=== PATIENT | male | born 2000 | race Hispanic/Latino ===

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

== ENCOUNTER 2020-09-18 22:10 | Emergency (ER) | payer BC, MEDICAID ==
[2020-09-18] MEDS ORDERED: ACETAMINOPHEN 325 MG TAB ONE (22:32)
[2020-09-18] MEDS ORDERED: IBUPROFEN 400 MG TABLET ONE (22:32)
== END 2020-09-18 23:54 | disposition home or self-care (01) ==
LOC: EDH 22:10
DX: S62.324A Displaced fracture of shaft of fourth metacarpal bone, right hand, initial encounter for closed fracture (principal); K21.9 Gastro-esophageal reflux disease without esophagitis; X58.XXXA Exposure to other specified factors, initial encounter; Y93.89 Activity, other specified; Y92.098 Other place in other non-institutional residence as the place of occurrence of the external cause; Y99.8 Other external cause status
CPT/HCPCS: 26770; 73130

== ENCOUNTER 2020-10-11 13:53 | Emergency (ER) | payer BC ==
[2020-10-11] MEDS ORDERED: ONDANSETRON HCL 4 MG/2 ML VIAL ONE (14:23)
[2020-10-11] MEDS ORDERED: SODIUM CHLORIDE 0.9% 1000ML 1,000 ML IV ONE (14:24)
[2020-10-11 15:05] LABS: BASOPHILS % (AUTO) 0.5 % (0.0-5.0); CREATININE 1.3 mg/dL (0.5-1.5); EOSINOPHILS % (AUTO) 0.5 % (0.0-8.0); HEMATOCRIT 48.1 % (42-54); LYMPHOCYTES % (AUTO) 21.3 % (21.0-51.0); MEAN CORPUSCULAR HEMOGLOBIN 29.4 pg (27.0-33.0); MEAN CORPUSCULAR HGB CONC 35.6 g/dL (32.0-36.0); MEAN CORPUSCULAR VOLUME 82.8 fL (80-100); MONOCYTES % (AUTO) 6.6 % (3.0-13.0); NEUTROPHILS % (AUTO) 70.3 % (40.0-77.0); PLATELET COUNT (AUTO) 355 K/uL (130-400); POTASSIUM 3.5 mmol/L (3.5-5.1); RED BLOOD CELL COUNT(AUTO) 5.81 MIL/uL (4.50-6.20); RED CELL DISTRIBUTION WIDTH 11.9 % (11.0-15.5); WHITE BLOOD COUNT (AUTO) 24.4 K/uL (4.8-10.8)
[2020-10-11 15:10] LABS: ALBUMIN 5.3 g/dL (3.5-5.0); BILIRUBIN,TOTAL 0.9 mg/dL (0.2-1.0); TOTAL PROTEIN, SERUM 8.7 g/dL (6.0-8.3)
== END 2020-10-11 15:43 | disposition home or self-care (01) ==
LOC: EDH 13:53
DX: R11.2 Nausea with vomiting, unspecified (principal); F10.129 Alcohol abuse with intoxication, unspecified; K21.9 Gastro-esophageal reflux disease without esophagitis
CPT/HCPCS: 36415; 80053; 85025; 96365; 99284; J2405; J7030

== ENCOUNTER 2021-01-21 18:41 | Emergency (ER) | payer BC | END 2021-01-21 18:42 | disposition left against medical advice (07) | LOC: EDH 18:41 | DX: R11.2 Nausea with vomiting, unspecified (principal); R19.7 Diarrhea, unspecified; Z53.21 Procedure and treatment not carried out due to patient leaving prior to being seen by health care provider ==

== ENCOUNTER 2021-06-06 09:25 | Emergency (ER) | payer BC ==
[~2021-06-06] VITALS: Ht 172.7 cm; Wt 61.2 kg
[2021-06-06 09:26] VITALS: BP 135/66
[2021-06-06] MEDS ORDERED: KETO30CR21 TP (10:37)
== END 2021-06-06 10:52 | disposition home or self-care (01) ==
LOC: EDH 09:25
DX: B35.4 Tinea corporis (principal)
CPT/HCPCS: 99281

== ENCOUNTER 2022-11-01 06:12 | Emergency (ER) | payer BC ==
[~2022-11-01] VITALS: Ht 167.6 cm; Wt 70.3 kg
[~2022-11-01 06:12] MED LIST: KETO30CR21 TP
[2022-11-01 07:15] LABS: AMPHET/METH SCREEN,URINE NEGATIVE (NEGATIVE); BARBITURATE SCREEN, URINE NEGATIVE (NEGATIVE); BENZODIAZEPINES SCREEN,URINE NEGATIVE (NEGATIVE); CANNABINOID SCREEN,URINE POSITIVE (NEGATIVE); COCAINE SCREEN,URINE POSITIVE (NEGATIVE); OPIATE SCREEN,URINE NEGATIVE (NEGATIVE); PHENCYCLIDINE SCREEN,URINE NEGATIVE (NEGATIVE)
[2022-11-01] MEDS ORDERED: ALPRAZOLAM 1 MG TAB PO ONE (07:30)
[2022-11-01 07:46] VITALS: BP 146/82
== END 2022-11-01 09:04 | disposition home or self-care (01) ==
LOC: EDH 06:12
DX: F10.129 Alcohol abuse with intoxication, unspecified (principal); F14.10 Cocaine abuse, uncomplicated; F41.9 Anxiety disorder, unspecified
CPT/HCPCS: 80305; 93005

== ENCOUNTER 2025-03-16 12:50 | Emergency (ER) | payer BC, OTHER ==
[~2025-03-16] VITALS: Ht 165.1 cm; Wt 68.0 kg
[2025-03-16] MEDS: ondanSETRON 4MG INJ IVP ONE (13:13)
[2025-03-16] MEDS: 0.9%NACL 1000ML 1,000 ML IV ONE (13:13)
[2025-03-16 13:16] LABS: BASOPHILS # (AUTO) 0.08 K/uL (0.00-0.20); BASOPHILS % (AUTO) 0.5 % (0.0-5.0); EOSINOPHILS # (AUTO) 0.05 K/uL (0.00-0.70); EOSINOPHILS % (AUTO) 0.3 % (0.0-8.0); HEMATOCRIT 48.7 % (42-54); IMMATURE GRANULOCYTE ABSOLUTE 0.12 K/uL (0-1); LYMPHOCYTES # (AUTO) 2.7 K/uL (1.0-4.8); LYMPHOCYTES % (AUTO) 15.9 % (21.0-51.0); MEAN CORPUSCULAR HEMOGLOBIN 29.6 pg (27.0-33.0); MEAN CORPUSCULAR HGB CONC 35.7 g/dL (32.0-36.0); MEAN CORPUSCULAR VOLUME 82.8 fL (79-99); MONOCYTES # (AUTO) 0.7 K/uL (0.1-1.0); MONOCYTES % (AUTO) 4.4 % (3.0-13.0); NEUTROPHILS # (AUTO) 13.3 K/uL (1.8-7.7); NEUTROPHILS % (AUTO) 78.2 % (40.0-77.0); PLATELET COUNT (AUTO) 273 K/uL (130-400); RED BLOOD CELL COUNT(AUTO) 5.88 MIL/uL (4.50-6.20); RED CELL DISTRIBUTION WIDTH 11.8 % (11.0-15.5)
[2025-03-16 13:33] LABS: BILIRUBIN,DIRECT 0.3 mg/dL (0.0-0.3); CREATININE 1.3 mg/dL (0.5-1.3); POTASSIUM 4.6 mmol/L (3.5-5.1); TOTAL PROTEIN, SERUM 8.3 g/dL (6.0-8.3)
[2025-03-16 14:21] LABS: APPEARANCE,URINE CLEAR (CLEAR); BILIRUBIN,URINE NEGATIVE (NEGATIVE); COLOR,URINE YELLOW (YELLOW); GLUCOSE, URINE (UA) NEGATIVE (NEGATIVE); KETONES,URINE 100 mg/dL (NEGATIVE); LEUKOCYTE ESTERASE ,URINE NEGATIVE Leu/uL (NEGATIVE); MUCUS,URINE RARE LPF (None Seen); NITRATE,URINE NEGATIVE (NEGATIVE); OCCULT BLOOD,URINE NEGATIVE (NEGATIVE); PH,URINE 5.5 (5.0-8.0); PROTEIN,URINE 30 mg/dL (NEGATIVE); RBC,URINE 0-1 /HPF (0-1); UROBILINOGEN,URINE 0.2 mg/dL (0.2-1.0)
[2025-03-16 14:27] LABS: AMPHET/METH SCREEN,URINE NEGATIVE (NEGATIVE); BARBITURATE SCREEN, URINE NEGATIVE (NEGATIVE); BENZODIAZEPINES SCREEN,URINE NEGATIVE (NEGATIVE); CANNABINOID SCREEN,URINE POSITIVE (NEGATIVE); COCAINE SCREEN,URINE POSITIVE (NEGATIVE); OPIATE SCREEN,URINE NEGATIVE (NEGATIVE); PHENCYCLIDINE SCREEN,URINE NEGATIVE (NEGATIVE)
[2025-03-16 14:48] VITALS: BP 95/49; PULSE 71; RESP 16; TEMP 98.9; O2SAT 100
--- NOTE | 2025-03-16 15:28 | ERN ---
General Chief Complaint: Nausea,Vomiting,Diarrhea Stated Complaint: ALCOHOL POISONING Time Seen by MD: 12:55 Time Seen by Midlevel: 12:55 Source: patient History of Present Illness Initial Comments 24-year-old male who presents to the emergency department due to vomiting onset this morning. Patient states he thinks he has alcohol poisoning. Reports he had multiple beers yesterday unsure anywhere between 12-20, along with cocaine use. Patient denies any abdominal pain, chest pain, difficulty breathing or further associated symptoms. Denies significant past medical history. Allergies: Coded Allergies: No Known Allergies (Unverified Allergy, Unknown, 06/06/21) Home Meds Active Scripts Ketoconazole/Hydrocortisone (Hydrocort 2.5%-Ketoconazole 2%) 30 Gm Cream..g., 30 GM TP TID for 15 Days, #15 TUBE Prov:ALEJANDRA RUBY MD 06/06/21 Past Medical History Past Medical History: No Pertinent History Past Surgical History: Other Surgical History Other: RT HAND SX Family History Family History: Negative Social History Social History: Smokers, Drugs, ETOH, Lives with family ROS Dictation Constitutional: Negative for fever,chills, and weight loss Eyes: Negative for injury, pain,redness, and discharge ENT: Negative for injury,pain or swelling Cardiovascular: Negative for chest pain, palpitations, and edema Respiratory: Negative for shortness of breath, cough, and wheezing, Abdomen/GI: Positive for vomiting Negative for abdominal pain, diarrhea, and constipation Back: Negative for injury and pain : Negative for painful urination, bleeding or discharge MS/Extremity: Negative for injury and deformity Skin: Negative for rash, and discoloration Neuro: Negative for headache, weakness, numbness, tingling, and seizure Psych: Negative for suicide ideation, homicidal ideation, and hallucinations Physical Exam Physical Exam Dictation General: awake, alert, no acute distress Head/Face: Normocephalic, atraumatic Eyes: PERRL, EOMI, normal conjuctiva ENT: oral cavity clear, TMs clear, oral mucosa moist Neck: Supple, normal range of motion Cardiovascular: RRR, normal S1/S2 Respiratory: CTAB, no respiratory distress, no rales or wheezes Abdomen: Soft, non-tender, non-distended, normal bowel sounds, no guarding or rebound. Skin: Warm, dry, normal turgor, no rash MS/Extremity: Pulses equal, no cyanosis, neurovascular intact, FROM Neuro: COAx4, GCS 15, strength 5/5, CN 2-12 intact, normal cerebellar exam, normal gait, Psych: Normal behavior, mood, and affect normal Results Laboratory and Microbiology Lab and Micro Result Laboratory Tests Test 03/16/25 13:06 03/16/25 13:46 White Blood Count 17.0 K/uL (4.8-10.8) H Red Blood Count 5.88 MIL/uL (4.50-6.20) Hemoglobin 17.4 g/dL (14.0-18.0) Hematocrit 48.7 % (42-54) Mean Corpuscular Volume 82.8 fL (79-99) Mean Corpuscular Hemoglobin 29.6 pg (27.0-33.0) Mean Corpuscular Hemoglobin Concent 35.7 g/dL (32.0-36.0) Red Cell Distribution Width 11.8 % (11.0-15.5) Platelet Count 273 K/uL (130-400) Mean Platelet Volume 9.5 fL (7.5-10.5) Immature Granulocyte % (Auto) 0.7 % (0-1) Neutrophils (%) (Auto) 78.2 % (40.0-77.0) H Lymphocytes (%) (Auto) 15.9 % (21.0-51.0) L Monocytes (%) (Auto) 4.4 % (3.0-13.0) Eosinophils (%) (Auto) 0.3 % (0.0-8.0) Basophils (%) (Auto) 0.5 % (0.0-5.0) Neutrophils # (Auto) 13.3 K/uL (1.8-7.7) H Lymphocytes # (Auto) 2.7 K/uL (1.0-4.8) Monocytes # (Auto) 0.7 K/uL (0.1-1.0) Eosinophils # (Auto) 0.05 K/uL (0.00-0.70) Basophils # (Auto) 0.08 K/uL (0.00-0.20) Absolute Immature Granulocyte (auto 0.12 K/uL (0-1) Nucleated Red Blood Cells 0.0 % (0.0-0.19) Sodium Level 144 mmol/L (136-145) Potassium Level 4.6 mmol/L (3.5-5.1) Chloride Level 105 mmol/L (101-111) Carbon Dioxide Level 22 mmol/L (21-32) Blood Urea Nitrogen 19 mg/dL (7-18) H Creatinine 1.3 mg/dL (0.5-1.3) Glomerular Filtration Rate Calc 78 mL/min (>90) Random Glucose 69 mg/dL (70-105) L Total Calcium 9.7 mg/dL (8.5-10.1) Total Bilirubin 1.0 mg/dL (0.2-1.0) Direct Bilirubin 0.3 mg/dL (0.0-0.3) Aspartate Amino Transf (AST/SGOT) 38 U/L (10-37) H Alanine Aminotransferase (ALT/SGPT) 33 U/L (12-78) Alkaline Phosphatase 82 U/L (50-136) Total Protein 8.3 g/dL (6.0-8.3) Albumin 5.0 g/dL (3.5-5.0) Lipase 22 U/L (16-77) Serum Alcohol 27 mg/dL (0-10) H Urine Color YELLOW (YELLOW) Urine Appearance CLEAR (CLEAR) Urine pH 5.5 (5.0-8.0) Urine Specific [place] 1.028 (1.001-1.031) Urine Protein 30 mg/dL (NEGATIVE) H Urine Glucose (UA) NEGATIVE mg/dL (NEGATIVE) Urine Ketones 100 mg/dL (NEGATIVE) H Urine Occult Blood NEGATIVE (NEGATIVE) Urine Nitrate NEGATIVE (NEGATIVE) Urine Bilirubin NEGATIVE mg/dL (NEGATIVE) Urine Urobilinogen 0.2 mg/dL (0.2-1.0) Urine Leukocyte Esterase NEGATIVE [place]/uL Urine RBC 0-1 /HPF (0-1) Urine WBC 2-5 /HPF (0-1) H Urine Bacteria None /HPF (None Seen) Urine Opiates Screen NEGATIVE (NEGATIVE) Urine Barbiturates Screen NEGATIVE (NEGATIVE) Urine Phencyclidine Screen NEGATIVE (NEGATIVE) Urine Amphetamines Screen NEGATIVE (NEGATIVE) Urine Benzodiazepines Screen NEGATIVE (NEGATIVE) Urine Cocaine Screen POSITIVE (NEGATIVE) H Urine Marijuana (THC) Screen POSITIVE (NEGATIVE) H Labs Reviewed?: Yes MDM MDM: Differential diagnosis: Alcohol intoxication, drug use Rationale: 24-year-old male who presents to the emergency department due to vomiting onset this morning. Patient states he thinks he has alcohol poisoning. Reports he had multiple beers yesterday unsure anywhere between 12-20, along with cocaine use. Patient denies any abdominal pain, chest pain, difficulty breathing or further associated symptoms. Denies significant past medical history. The patient is neurologically intact, in no acute distress. Labs obtained leukocytosis of 17, BUN 19, blood alcohol 27. Chest x-ray ordered to rule out any aspiration due to vomiting and heavy drinking however patient refused. Drug screen positive for cocaine and marijuana. Patient was administered IV fluids and Zofran. No further episodes of emesis in the ED. patient was educated on findings and diagnosis. Advised to follow up with PCP. Return to the emergency department if any worsening symptoms. Patient verbalized understanding. Patient stable for discharge. There are no social concerns with this patient. I independently interpreted the test that were performed, results were reviewed by me and considered findings on radiology if ordered. Medical management and examination interpretation discussions were had by me with other qualified healthcare professionals as indicated for the patient's care. ED Course Orders Procedure Category Date Status Time Cbc With Differential LAB 03/16/25 Complete 12:59 Basic Metabolic Panel LAB 03/16/25 Complete 12:59 Lipase LAB 03/16/25 Complete 12:59 Hepatic Function Panel LAB 03/16/25 Complete 12:59 Urinalysis LAB 03/16/25 Complete W/Microscopic 12:59 Drug Screen Urine LAB 03/16/25 Complete 12:59 Alcohol, Blood LAB 03/16/25 Complete 12:59 Ondansetron 4mg Inj PHA 03/16/25 Complete (Zofran 4mg Inj) 13:30 0.9%Nacl 1000ml (Ns PHA 03/16/25 Complete 1000ml) 13:30 0.9%Nacl 1000ml (Ns PHA 03/16/25 Complete 1000ml) 15:30 Current Medications Medications (Trade) Dose Ordered Sig/Adam Route PRN Reason Start Time Stop Time Status Last Admin Dose Admin Ondansetron HCl (zoFRAN 4MG INJ) 4 mg ONCE ONCE IVP 03/16/25 13:30 03/16/25 13:31 DC 03/16/25 13:13 Sodium Chloride 1,000 ml @ 0 mls/hr ONCE ONCE IV 03/16/25 13:30 03/16/25 13:31 DC 03/16/25 13:13 Sodium Chloride 1,000 ml @ 0 mls/hr ONCE ONCE IV 03/16/25 15:30 03/16/25 15:26 DC Vital Signs Date Time Temp Pulse Resp B/P (MAP) Pulse Ox O2 Delivery O2 Flow Rate FiO2 03/16/25 14:48 99.0 71 16 95/49 100 Room Air* 0 21 03/16/25 13:26 100.0 79 18 105/55 100 Room Air* 0 21 03/16/25 12:54 97.9 96 18 104/81 100 Room Air 0 DX & DISP Disposition: Discharge Departure Impression: Primary Impression: Vomiting Additional Impressions: Cocaine abuse, Marijuana abuse, Alcohol abuse Condition: Stable Additional Instructions: Discharge home. Rest. Follow up with primary care in 24 hours. Return to the ER for any acute changes or worsening symptoms. If any medications were prescribed take as directed. Okay to continue home medications unless otherwise discussed during your visit in the emergency room today. Patient was also advised to follow-up with primary care physician in 1 to 2 days for continued monitoring. Referrals: NEIL VARELA MD (PCP) I performed the substantive portion of the visit. I have reviewed and personally made and approve the management plan that is documented in the notes by myself or the MAGDY. I acknowledge full responsibility for the patient's management plan. ANDREW BLAIR Mar 16, 2025 15:28
[2025-03-16] MEDS ORDERED: 0.9%NACL 1000ML 1,000 ML IV ONE (15:30)
--- NOTE | 2025-03-16 15:30 | NUR ---
PT REFUSED CHEST XRAY STATED( IM HERE FOR ALCOHOL INTOXICATION I DONT NEED A CHEST XRAY). DR GARCIA AWARE , OLIVA AMAYA AWARE.
--- NOTE | 2025-03-16 15:34 | NUR ---
PT STABLE NO DISTRESS VITALS WNL NO C/O PAIN PT IV REMOVED CATHETER INTACT PT STATES HE FEELS BETTER WANTS TO GO HOME. PT WALKED TO ED LOBBY STATES HE WILL CALL HIS FAMILY FOR HIS RIDE.
== END 2025-03-16 15:39 | disposition home or self-care (01) ==
LOC: EDH 12:50
DX: R11.10 Vomiting, unspecified (principal); F12.10 Cannabis abuse, uncomplicated; F14.10 Cocaine abuse, uncomplicated; F10.10 Alcohol abuse, uncomplicated; F17.200 Nicotine dependence, unspecified, uncomplicated; Y90.1 Blood alcohol level of 20-39 mg/100 ml; Z79.899 Other long term (current) drug therapy
CPT/HCPCS: 99284; 96374; 96361; 80076; 80048; 80305; 83690; 85025; 81001; 36415; J7120; J2405; 99285